=== PATIENT | female | born 1950 ===

== ENCOUNTER 2019-02-07 10:14 | Day surgery (SDC) | payer MEDICARE ==
[~2019-02-07 10:14] MED LIST: Acetaminophen TAB* 325 MG PO PRN; Buffered Lidocaine 1% SYRIN* 1 ML/SYRINGE INTRADERM ONE
[2019-02-07] MEDS ORDERED: fentaNYL* 50 MCG/ML 2 ML VIAL (100 MCG VIAL) ONE (11:23)
[2019-02-07] MEDS ORDERED: Midazolam* 1 MG/ML 5 ML VIAL (5 MG) ONE (11:24)
[2019-02-07 13:01] VITALS: BP 140/79
--- NOTE | 2019-02-07 13:43 | OP ---
DATE OF OPERATION: 02/07/[address] [facility] DATE OF : 50 SURGEON: Jose A Liu MD FOOT ROENTGENOLOGIST: None. ANESTHESIA: Topical with intravenous sedation. PRE-OP DIAGNOSIS: Cataract with astigmatism, left eye. POST-OP DIAGNOSIS: Cataract with astigmatism, left eye. OPERATIVE PROCEDURE: Phacoemulsification and cataract extraction with posterior chamber toric intraocular lens implant, left eye. COMPLICATIONS: None. BLOOD LOSS: None. DESCRIPTION OF PROCEDURE: The patient was brought to the operating room and was given intravenous sedation. A drop of tetracaine was placed in her left eye. The patient was prepped and draped in the usual sterile fashion for ophthalmic surgery and attention was directed to the left eye where a speculum was placed. A paracentesis was created at the 5 o'clock position. A 0.1 cc of 1% preservative- free lidocaine was injected into the anterior chamber followed by DisCoVisc. The eye was digitally stabilized while a 2.75 mm keratome was used to create a triplanar clear corneal incision in the 3 o'clock position. The pupil was noted to be small despite preoperative dilating drops. A continuous curvilinear capsulorrhexis was created with cystotome and Utrata forceps measuring approximately 4 mm in diameter, which was approximately 0.5 mm larger than the pupil. BSS on a cannula was used to hydrodissect the lens from the capsule. Omidria was added to the irrigating solution. Phacoemulsification was performed in a myuzli-gfw-zguzxif technique to create four fragments which were removed. Residual cortical material was removed with irrigation and aspiration. ProVisc was used to inflate the capsular bag. The intraocular pressure was measured and found to be appropriate. The surface of the eye was lubricated with BSS. The ORA device was employed to help choose the lens. An SN6AT3 17.0 diopter lens was chosen for planned myopia. The reticle on the ORA helped guide lens axis alignment. The lens was placed and dialed to 23 degree axis. Irrigation and aspiration were performed to remove viscoelastic from the eye while the lens was held with Sinskey hook to the paracentesis in position. The Sinskey hook was removed. BSS on a cannula was used to hydrate the corneal stroma and seal the wound. At the end of the case, the pupil was round. The lens was centered, stable in axial line. The eye pressure appeared normal and the wound was watertight. The speculum was removed. Topical Maxitrol ointment was placed on the surface of the eye. The eye was closed, patched, and shielded, and the patient was sent to the recovery room in stable condition with postoperative instructions and followup appointment given. [id number] #: [id number] MTDD
[2019-02-07] MEDS ORDERED: Phenylephr/Ketorolac 1%/0.3% OPH DROP BTL ONE (14:30)
[2019-02-07] MEDS ORDERED: Phenylephrine OPHTH SOL 2.5%* 2 ML ONE (14:47)
[2019-02-07] MEDS ORDERED: Cyclopentolate 1% OPTH.SOL* 2 ML BTL ONE (14:47)
[2019-02-07] MEDS ORDERED: Lidocaine 1% MPF ** 5 ML VIAL ONE (14:47)
[2019-02-07] MEDS ORDERED: Tropicamide 1% OPTH.SOL* BTL ONE (14:48)
[2019-02-07] MEDS ORDERED: Ketorolac 0.5% OPHTH (NF) 0.5 % 5 ML BTL ONE (14:48)
[2019-02-07] MEDS ORDERED: Neomycin/Polymy/Dex OPHTH.OIN* 3.5 GM ONE (14:48)
[2019-02-07] MEDS ORDERED: Tetracaine 0.5% OPTH.SOL 4 ML* 1 DROP BTL ONE (14:48)
== END 2019-02-07 12:43 | disposition home or self-care (01) ==
LOC: OREAST 10:14
PROVIDERS: ATTEND Ophthalmology
DX: H25.13 Age-related nuclear cataract, bilateral (principal); H52.223 Regular astigmatism, bilateral; G20 Parkinson's disease
CPT/HCPCS: A9270-GY; C9447; J2250; J3010; V2787